=== PATIENT | male | born 2005 | race Caucasian/White ===

== ENCOUNTER 2025-04-18 14:56 | Outpatient (AMB) | payer BC, SELFPAY ==
--- NOTE | 2025-04-18 15:02 | MHC.PC.OV ---
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 She reports history of syncope beginning in her senior year of high school 2 years ago when she passed out at a restaurant after a meal and sustained a concussion. Second episode occurred the same year while standing for a prolonged period. She reports her most recent syncopal episode this year, when she woke up with a severe stomach ache went to the bathroom, became nauseous and then lost consciousness while on toilet. Denies straining during the bowel movement. She reports experiencing presyncopal symptoms including lightheadedness, feeling hot, sweaty, palpitation and feeling jittery. Triggers include prolonged standing, stress. Reports that her syncopal episodes lasted about 1-2 minutes, sometimes accompanied by tremors and eye rolling. Patient reports that following the initial episode 2 years ago she was evaluated by product safety consultant had a Holter monitor that was reportedly normal. She reports she has always played soccer and that she was cleared to resume activity. She reports that she had an echocardiogram done but unsure of the results, and plan neurology follow up that did not occur. Denies surgical history. Has a contraceptive implant in her left arm which was placed 2 years ago. Family history significant for father with high blood pressure and hemochromatosis, and mother with a thyroid disease. No family history of heart disease or seizures. Social history: Lives with her parents. Reports occasional social use of marijuana and nicotine via E cigarettes about once a week. Drinks alcohol occasionally. [facility] Surgical History (Updated 04/18/25 @ 15:07 by Jacklyn Sotelo CMA) No pertinent past surgical history Family History (Updated 04/18/25 @ 15:09 by Jacklyn Sotelo CMA) Father Squamous cell carcinoma of tonsil Hemochromatosis Paternal Grandfather Lung cancer Mother Depression Social History (Updated 04/18/25 @ 15:07 by Jacklyn Sotelo CMA) Household Members: Family Housing: House Alcohol intake: never Patient Tobacco Use Status: Never used Tobacco e-Cigarette/Vaping Use: Currently Using Substance Use Type: Marijuana service: No Current occupational status: employed and student Current occupation: [employer] Cognitive needs: No Hearing needs: No Vision needs: Yes Questionnaire PHQ-9 Over the last 2 weeks, how often have you been bothered by any of the following problems? 1. Little interest or pleasure in doing things: several days 2. Feeling down, depressed, or hopeless: not at all 3. Trouble falling or staying asleep, or sleeping too much: more than half the days 4. Feeling tired or having little energy: several days 5. Poor appetite or overeating: several days 6. Feeling bad about yourself - or that you are a failure or have let yourself or your family down: several days 7. Trouble concentrating on things, such as reading the newspaper or watching television: several days 8. Moving or speaking so slowly that other people could have noticed. Or the opposite - being so fidgety or restless that you have been moving around a lot more than usual: not at all 9. Thoughts that you would be better off or of hurting yourself in some way: not at all Total score: 7 Depression Screening Interpretation: Positive Depression Screening Done: Yes 84436 - PHQ-9 Billing: Yes Source: Developed by Drs. Brendon Pringle, Flower Ba, Steven Stern and colleagues, with an educational chacorta from [employer]. Thrive Questionnaire Date Thrive assessed: 04/18/25 I am a: Patient What is your living situation today?: I have a steady place to live Within the past 12 months, did the food you bought not last and you didn't have the money to get more?: Sometimes True Within the past 12 months, did you worry whether your food would run out before you got money to buy more?: Sometimes True Do you have trouble paying for medicines?: No Do you have trouble getting transportation to medical appointments?: No Do you have trouble paying your heating and electricity bill?: No Do you have trouble taking care of your child, family member or friend?: No Do you have trouble with day-to-day activities such as bathing, preparing meals, shopping, managing finances, etc.?: No Are you currently unemployed and looking for a job?: No Are you interested in more education?: No Please select the resources that you would like help with: None Currently or been in a relationship where the following occur: I choose not to answer THRIVE Score: 2 AUDIT C Alcohol Use Questionnaire (AUDIT-C) 1. How often do you have a drink containing alcohol?: Monthly or less 2. How many drinks containing alcohol do you have on a typical day when you are drinking?: 3 or 4 3. How often do you have six or more drinks on one occasion?: Never Total Score: 2 MANN-7 AMB Questionnaire MANN-7 Date MANN - 7 assessed: 04/18/25 Feeling nervous, anxious, or on edge: 2 = More than half the days Not being able to stop or control worryin = Several days Worrying too much about different things: 1 = Several days Trouble relaxin = Not at all Being so restless that it is hard to sit still: 0 = Not at all Becoming easily annoyed or irritable: 1 = Several days Feeling afraid as if something awful might happen: 0 = Not at all Total MANN-7 score (0-4 normal; 5-9 mild; 10-14 moderate; 15-21 severe): 5 Source: Developed by Drs. Brendon Pringle, Flower Ba, Steven Stern and colleagues, with an educational chacorta from [employer]. MANN-7 Assessment Billing MANN-7 Assessment Tool: MANN-7 Assessment 47228 Physical exam (Primary Care) Vital Signs: Last Vital Signs Temp 97.3 F 04/18/25 15:03 Pulse 57 04/18/25 15:03 BP 122/86 04/18/25 15:03 Pulse Ox 96 04/18/25 15:03 Oxygen Delivery Method Room Air 04/18/25 15:03 General: Well-appearing, alert, oriented ?3, in no acute distress. Cardiovascular: RRR, S1-S2 appreciated, no murmurs, rubs or gallops. Respiratory: Lungs clear to auscultation bilaterally, no wheezes, rales or rhonchi. Abdomen: Soft, nontender, nondistended. Normoactive bowel sounds. BMI result Body Mass Index 24.2 Tobacco/Smoking Status: Tobacco use Status Tobacco use date assessed 04/18/25 04/18/25 15:10 Patient Tobacco Use Status Never used Tobacco 04/18/25 15:10 e-Cigarette/Vaping Use Currently Using 04/18/25 15:10 PHQ-9: PHQ-9 Score PHQ-9: Total score 7 04/18/25 15:16 Depression Screening Interpretation: Positive Thrive Assessment: Date of Thrive Assessment Date Thrive assessed 04/18/25 04/18/25 15:10 Currently or been in a relationship where the following occur: I choose not to answer Coding Level of Care Code New Pt Level 4 (07379) Diagnoses Establishing care with new doctor, encounter for Z76.89 Syncope, unspecified syncope type R55 Syncope type: unspecified Family history of hemochromatosis Z83.49 Additional Codes MANN-7 Assessment Billing - MANN-7 Assessment Tool: MANN-7 Assessment 55559 ([id number]) PHQ-9 - 84495 - PHQ-9 Billing: Yes ([id number]) Assessment & Plan Assessment & Plan (1) Establishing care with new doctor, encounter for: Code(s): Z76.89 - Persons encountering health services in other specified circumstances Plan: Patient is a 19-year-old female presenting to establish care (2) Syncope: Code(s): R55 - Syncope and collapse Category: Medical Qualifiers: Syncope type: unspecified Qualified Code(s): R55 - Syncope and collapse Plan: Patient presenting with a history of recurrent syncopal episodes with prodromal symptoms, could be secondary to vasovagal syncope, cardiac etiology or neurological etiology. However, given associated palpitations, questionable history of tremors during episode and recurrence after 2 year interval, and underlying cardiac arrhythmia or neurologic cause must be ruled. Plan is to obtain EKG, baseline blood work, 48 hour Holter monitor and an echocardiogram to further evaluate for cardiac arrhythmias structural heart disease. Referrals for both Cardiology neurology placed for further evaluation. Patient advised on conservative management such as staying hydrated, avoiding triggers like for longstanding, extreme heat and stress. (3) Family history of hemochromatosis: Code(s): Z83.49 - Family history of other endocrine, nutritional and metabolic diseases Category: Medical Plan: Obtain CBC Orders: Orders Comprehensive Met. Panel Today Z00.00 - Encounter for general adult medical examination without abnormal findings Lipid Panel with Reflex Today Z00.00 - Encounter for general adult medical examination without abnormal findings TSH reflex Free T4 Today Z83.49 - Family history of other endocrine, nutritional and metabolic diseases ECG 12 lead EKG Today R55 - Syncope and collapse ECG holter monitor 48 hour Today R00.2 - Palpitations, R55 - Syncope and collapse CA echo transthoracic complete Today R55 - Syncope and collapse Complete Blood Count Auto Diff Today Z00.00 - Encounter for general adult medical examination without abnormal findings Referrals Cardiology Referral R55 - Syncope and collapse Neurology Referral R55 - Syncope and collapse
[2025-04-18 15:03] VITALS: BP 122/86; PULSE 57; TEMP 36.3; O2SAT 96; BMI 24.2
--- OUTSIDE RECORDS SUMMARY | 2025-04-19 12:59 | XMS_ITS | Encounter Summary ---
Author Organization [facility] Address [address] [place] [address] Phone Care Team Providers Care Security Operations Engineer Name Role Phone Sweetie Main MD Primary Care Provider [phone] Encounter Details Date Type Department Care Team (Late st Contact Info) Description 08/21/2016 Documentation [facility] [place] Family Medicine [address] [place] [address] Family Medicine, Physician [address] [place], [place] [id number] Social History Tobacco Use Types Packs/Day Years Used Date Smoking Tobacco: Never Assessed Comments Unknown Sex and Gender Information Value Date Recorded Sex Assigned at Not on file Legal Sex Female 5:12 PM EDT Gender Identity Female 05/29/2021 5:47 PM EST Sexual Orientation Not on file documented as of this encounter Plan of Treatment Not on file documented as of this encounter Visit Diagnoses Not on filedocumented in this encounter Care Teams Security Operations Engineer Relationship Specialty Start Date End Date Sweetie Main MD [address] [place] [id number] PCP - General 01/09/17 06/01/23 documented as of this encounter
--- OUTSIDE RECORDS SUMMARY | 2025-04-19 12:59 | XMS_ITS | Encounter Summary ---
Author Organization [facility] Address [address] [place] [address] Phone Care Team Providers Care Health Program Analyst Name Role Phone Sweetie Main MD Primary Care Provider Encounter Details Date Type Department Care Team (Late st Contact Info) Description 03/16/[address] [facility] [place] Family Medicine [address] [place] [address] Family Medicine, Physician [address] [place], [place] [address] Social History Tobacco Use Types Packs/Day Years [...] on filedocumented in this encounter Care Teams Health Program Analyst Relationship Specialty Start Date End Date Sweetie Main MD [address] [place] [id number] PCP - General 01/09/17 06/01/23 documented as of this encounter
--- OUTSIDE RECORDS SUMMARY | 2025-04-19 12:59 | XMS_ITS | Clinical Summary ---
Author Organization [facility] Address [address] [place] [address] Phone Care Team Providers Care Supervisor Model Making Name Role Phone Unavailable Primary Care Provider Unavailabl e Allergies Active Allergy Reactions Criticality Noted Date Comments Sulfamethoxazole Rash Low Trimethoprim Rash Low Medications Etonogestrel (NEXPLANON SC) Inject under the skin. Active triamcinolone 0.1 % creamIndication s:Flexural atopic dermatitis,Doctor Of Nurse Anesthesia yvon dermatitis Mix 80 gram tube in 1 lb jar of Cerave cream; apply liberally 2x/day to dry back and arms 80 g 1 2 Active Additional Information Patient not taking.Reported on 04/16/2022 Active Problems Problem Noted Date Diagnosed Date Varicella without complication 08/10/2019 Overview (08/10/2019): Hx of disease Jun 2005 Kyphosis 08/06/2018 Overview (08/06/2018): Had been seen at [facility] - was referred to PT and went a couple of times. Was recommended to work on her core. Resolved Problems Problem Noted Date Diagnosed Date Resolved Date Refused influenza vaccine 02/22/2020 Immunizations Immunization Administration Dates Next Due DTaP / Hep B / IPV 02/05/2005,2004, 005 DTaP 5 10/02/2008,02/16/2006 HPV Vaccine 9 Valent 08/20/2016,02/20/2016 Hep A, ped/adol 01/27/2014,11/19/2010 Hep B, ped/adol 2004 Hib (HbOC) 02/05/2005,2004,2004 Hib (PRP-T) 11/05/2005 IPV 10/02/2008 Influenza Split 03/18/2010 Influenza, injectable, quadr ivalent, preservative free 03/13/2020 Influenza, injectable, trivalent 009,03/31/2007,04/22/2006,04/30,03/19/2005 MMR 10/02/2008,08/04/2005 Meningococcal B Trumenba 04/16/2022 Meningococcal Conj (Menactra) MCV4P 11/28/2020,0 02/20/2016 Pneumococcal Conjugate 11/05/2005,2004,2004,10/07 Tdap 02/20/2016 Family History Medical History Relation Name Comments Hyperlipidemia Maternal Grandfather Hyperlipidemia Maternal Grandmother Hyperthyroidism Maternal Grandmother Asthma Paternal Grandmother Diabetes Paternal Grandmother Migraines Paternal Grandmother Relation Name Status Comments Brother 1 Stu Alive Brother: Asthma , Alive and well Brother 2 Homer Alive Father Jeremiah Alive Father: Hemochr omatosis Maternal Grandfather Maternal Grandmother Mother Ariane Alive Mother: Alive a nd well Other No family histo ry of CVA (Stroke), No family history of Sudden /[place] under age 55, No family history of Heart disease, No family history of Dental caries, No family history of Thrombophilia Paternal Grandfather Paternal Grandmother Social History Tobacco Use Types Packs/Day Years Used Date Smoking Tobacco: Never Smokeless Tobacco: Never Tobacco Cessation:Counseling Given: Yes Alcohol Use Standard Drinks/Week Comments Never 0 (1 standard drink = 0.6 oz pur e alcohol) Hunger/Food Answer Date Recorded In the last 12 months, did y ou or your family ever eat less than you felt you should because there wasn't enough money for food? No 09/27/2020 Stable Housing Answer Date Recorded Are you worried that in the next 2 months you may not have stable housing? No 09/27/2020 Transportation Concerns Answer Date Rec orded In the last 12 months, have you or your family ever had to go without healthcare because you didn't have a way to get there? No 09/27/2020 Hazards in Home Answer Date Recorded Think about the place you li ve. Do you have problems with any of the following? Pests (mice or roaches), mold, no/not working smoke detectors, water leaks, no window guards. No 2020 Financing Utilities Answer Date Recorde d In the last 12 months, has t he electric, gas, oil, or water company threatened to shut off your services in your home? No 09/27/2020 Safety at Home Answer Date Recorded Are you or your family worried about feeling saf e in your home? No 09/27/2020 Outside Support Answer Date Recorded Do you feel that you need mo re support from other people or programs to help you care for yourself or your family? No 09/27/2020 Understanding Health Concerns Answer Da te Recorded Do you need help understandi ng your or your child's healthcare needs (diagnosis, medications, plan, etc.)? No 09/27/2020 Financing Health Concerns Answer Date R ecorded In the last 12 months, was t here a time when your child needed to see a doctor or get medications or supplies but could not because of cost? No 09/27/2020 Missing School or Work Answer Date Alejandro rded Did you or your child miss s chool or work because of a health problem that could have been avoided? No 09/27/2020 Comments No Sex and Gender Information Value Date Recorded Sex Assigned at Not on file Legal Sex Female 5:12 PM EDT Gender Identity Female 05/29/2021 5:47 PM EST Sexual Orientation Not on file Last Filed Vital Signs Vital Sign Reading Time Taken Comments Blood Pressure 108/68 09/16/2022 4:05 PM EDT Pulse 48 09/16/2022 4:05 PM EDT Temperature 36.8 C (98.2 F) 09/16/2022 4:05 PM EDT Respiratory Rate - - Oxygen Saturation - - Inhaled Oxygen Concentration - - Weight 57 kg (125 lb 9.6 oz) 09/16/2022 4:05 PM EDT Height 163.2 cm (5' 4.25 ) 11/28/2020 4:22 PM ED T Body Mass Index - - Plan of Treatment Health Maintenance Due Date Last Done Comments Men B Vaccine (2 of 2 - Trum enba SCDM 2-dose series) 10/14/2022 04/16/2022 Influenza Vaccines (#1) 2024 03/13/20 20, 03/18/2010, 03/14/2009, Additional history exists COVID-19 Vaccine (3 - 2024-2 6 season) 2025 10/22/2020, 09/30/2020 DTaP,Tdap,and Td Vaccines (7 - Td or Tdap) 02/19/2026 02/20/2016, 10/02/2008, 02/16/2006, Additional history exists Hepatitis B Vaccines Completed 02/05/2005, 2004, 2004, Additional history exists HIB Vaccines Completed 11/05/2005, 11/2004, 2004, Additional history exists Pneumococcal Vaccine Completed 11/05/2005, 02/05/2005, 2004, Additional history exists IPV Vaccines Completed 10/02/2008, 11/2004, 2004, Additional history exists MMR Vaccines Completed 10/02/2008, 08/04/2005 Hepatitis A Vaccines Completed 01/27/2014, 11/20/19 11 HPV Vaccines Completed 08/20/2016, 02/20/2016 Meningococcal Vaccine Completed 11/28/2020, 016 Procedures * Due to [place] law, this organization might not be sharing sensitive test results. Procedure Name Priority Date/Time Associated Diagnosis Comments CHLAMYDIA AND GONORRHEA, AMPLIFIED Routine 09/27/2020 3:30 PM EDT Screening examination for bacterial and spirochetal disease from Last 3 Months or Most Recently Relevant to Health Maintenance Results * Due to [place] law, this organization might not be sharing sensitive test results. * Chlamydia and Gonorrhoea, Amplified (09/27/2020 3:30 PM EDT) Chlamydia Trachomatis, DNA Probe NEGATIVE (NEG) [facility] Comment: No Chlamydia Trachomatis RNA detected in this patient's sample (REFERENCE RANGE/NORMAL VALUE: NOT DETECTED) Note: This test uses automotive title clerk- mediated amplification method to detect rRNA from C. Trachomatis URINE GC AMP PROBE NEGATIVE (NEG) [facility] Comment: No Neisseria Gonorrhoeae RNA detected in this patient's sample (REFERENCE RANGE/NORMAL VALUE: NOT DETECTED) NOTE: This test uses automotive title clerk-mediated amplification method to detect rRNA from N.Gonorrhoeae. A negative result does not preclude infection. In the case of a negative urine result, testing of an endocervical(female) or urethral (male) specimen is recommended if there is high clinical suspicion of infection. Due to very high sensitivity of Nucleic Acid Amplification Test, false positive results may occur. Therefore, specimen handling is extremely important. In patients in whom the disease is unlikely, additional sample for testing should be considered after an initial positive result. The performance characteristics of this test have not been evaluated in children. The Aptima Combo2 assay is not intended for the evaluation of suspected sexual abuse or for other medico-legal indications. The ordering provider should assess if the patient had consensual sex without risk of sexual abuse. Consult the [facility] if needed. Contact phone number . Therapeutic failure or success cannot be determined with the Aptima Combo2 assay since nucleic acid may persist following appropriate antimicrobial therapy. The Centers for Disease Control and Prevention (CDC) recommends confirmatory retesting using culture or a different nucleic acid amplification test when positive results occur, if indicated. Testing performed or reported by [facility], a Service of [facility], [facility] [place] [address] Pancho Abad MD, Business Management Associate Urine 09/27/2020 3:30 PM EDT 09/27/2020 8:49 PM EDT us Sweetie Main MD LAB MICROBIOLOGY - GENERAL ORDERABLES Final Result [facility] from Last 3 Months or Most Recently Relevant to Health Maintenance
--- OUTSIDE RECORDS SUMMARY | 2025-04-19 12:59 | XMS_ITS | Encounter Summary ---
Author Organization [facility] Address [address] [place] [address] Phone Care Team Providers Care Special Officer Automat Name Role Phone Sweetie Main MD Primary Care Provider Encounter Details Date Type Department Care Team (Late st Contact Info) Description 01/23/2015 Documentation [facility] [place] Family Medicine [address] [place] [address] Family Medicine, Physician [address] [place], [place] [phone] Social History Tobacco Use Types Packs/Day Years [...] on filedocumented in this encounter Care Teams Special Officer Automat Relationship Specialty Start Date End Date Sweetie Main MD [address] [place] [phone] PCP - General 01/09/17 06/01/23 documented as of this encounter
--- OUTSIDE RECORDS SUMMARY | 2025-04-19 12:59 | XMS_ITS | Encounter Summary ---
Author Organization [facility] Address [address] [place] [address] Phone Care Team Providers Care Tappet Adjuster Name Role Phone Sweetie Main MD Primary Care Provider Encounter Details Date Type Department Care Team (Late st Contact Info) Description 11/26/2011 Documentation [facility] [place] Family Medicine [address] [place] [address] Family Medicine, Physician [address] [place], [place] [address] Social History Tobacco Use Types Packs/Day Years [...] on filedocumented in this encounter Care Teams Tappet Adjuster Relationship Specialty Start Date End Date Sweetie Main MD [address] [place] [id number] PCP - General 01/09/17 06/01/23 documented as of this encounter
--- OUTSIDE RECORDS SUMMARY | 2025-04-19 12:59 | XMS_ITS | Encounter Summary ---
Author Organization [facility] Address [address] [place] [address] Phone Care Team Providers Care Metalsmith Apprentice Name Role Phone Sweetie Main MD Primary Care Provider Encounter Details Date Type Department Care Team (Late st Contact Info) Description 01/31/2014 Documentation [facility] [place] Family Medicine [address] [place] [address] Family Medicine, Physician [address] [place], [place] [address] Social History Tobacco Use Types Packs/Day Years [...] on filedocumented in this encounter Care Teams Metalsmith Apprentice Relationship Specialty Start Date End Date Sweetie Main MD [address] [place] [phone] PCP - General 01/09/17 06/01/23 documented as of this encounter
--- OUTSIDE RECORDS SUMMARY | 2025-04-19 12:59 | XMS_ITS | Encounter Summary ---
Author Organization [facility] Address [address] [place] [address] Phone Care Team Providers Care Flour Inspector Name Role Phone Sweetie Main MD Primary Care Provider Encounter Details Date Type Department Care Team (Late st Contact Info) Description 02/21/2016 [place]ation [facility] [place] [address] [place] [address] Family Medicine, Physician [address] [place], [place] [id number] Social History Tobacco Use Types Packs/Day Years [...] on filedocumented in this encounter Care Teams Flour Inspector Relationship Specialty Start Date End Date Sweetie Main MD [address] [place] [id number] PCP - General 01/09/17 06/01/23 documented as of this encounter
--- OUTSIDE RECORDS SUMMARY | 2025-04-19 12:59 | XMS_ITS | Encounter Summary ---
Author Organization [facility] Address [address] [place] [address] Phone Care Team Providers Care Mink Rancher Name Role Phone Sweetie Main MD Primary Care Provider [phone] Encounter Details Date Type Department Care Team (Late st Contact Info) Description 01/26/2013 Documentation [facility] [place] [address] [place] [address] Family Medicine, Physician [address] [place], [place] [address] Social History Tobacco Use Types Packs/Day Years [...] on filedocumented in this encounter Care Teams Mink Rancher Relationship Specialty Start Date End Date Sweetie Main MD [address] [place] [id number] PCP - General 01/09/17 06/01/23 documented as of this encounter
--- OUTSIDE RECORDS SUMMARY | 2025-04-19 12:59 | XMS_ITS | Encounter Summary ---
Author Organization [facility] Address [address] [place] [phone] Phone Care Team Providers Care Diamond Cleaner Name Role Phone Sweetie Main MD Primary Care Provider [phone] Encounter Details Date Type Department Care Team (Late st Contact Info) Description 01/15/2017 Conversion Encounter [facility] [address] [place] [address] Social History Tobacco Use Types Packs/Day Years [...] on filedocumented in this encounter Care Teams Diamond Cleaner Relationship Specialty Start Date End Date Sweetie Main MD [address] [place] [address] PCP - General 01/09/17 06/01/23 documented as of this encounter
--- OUTSIDE RECORDS SUMMARY | 2025-04-19 12:59 | XMS_ITS | Encounter Summary ---
Author Organization [facility] Address [address] [place] [address] Phone Care Team Providers Care Prize Fighter Name Role Phone Sweetie Main MD Primary Care Provider Encounter Details Date Type Department Care Team (Late st Contact Info) Description 02/21/2016 Documentation [facility] [place] [address] [place] [address] Family Medicine, Physician [address] [place], [place] [id number] Social History Tobacco Use Types Packs/Day Years [...] on filedocumented in this encounter Care Teams Prize Fighter Relationship Specialty Start Date End Date Sweetie Main MD [address] [place] [phone] PCP - General 01/09/17 06/01/23 documented as of this encounter
--- OUTSIDE RECORDS SUMMARY | 2025-04-19 12:59 | XMS_ITS | Encounter Summary ---
Author Organization [facility] Address [address] [place] [address] Phone Care Team Providers Care Books Binder Name Role Phone Sweetie Main MD Primary Care Provider Encounter Details Date Type Department Care Team (Late st Contact Info) Description 11/26/2011 Documentation [facility] [place] [address] [place] [address] Family Medicine, Physician [address] [place], [place] [id number] Social History Tobacco Use Types Packs/Day Years [...] on filedocumented in this encounter Care Teams Books Binder Relationship Specialty Start Date End Date Sweetie Main MD [address] [place] [id number] PCP - General 01/09/17 06/01/23 documented as of this encounter
--- OUTSIDE RECORDS SUMMARY | 2025-04-19 12:59 | XMS_ITS | Encounter Summary ---
Author Organization [facility] Address [address] [place] [address] Phone Care Team Providers Care Core Winder Machine Operator Name Role Phone Sweetie Main MD Primary Care Provider Encounter Details Date Type Department Care Team (Late st Contact Info) Description 01/31/2014 [place] [facility] [place] [address] [place] [address] Family Medicine, Physician [address] [place], [place] [address] Social History Tobacco Use Types Packs/Day Years [...] on filedocumented in this encounter Care Teams Core Winder Machine Operator Relationship Specialty Start Date End Date Sweetie Main MD [address] [place] [phone] PCP - General 01/09/17 06/01/23 documented as of this encounter
== END 2025-04-18 15:42 | disposition home or self-care (01) ==
LOC: HO.HMCH 14:57
PROVIDERS: Visit Provider Student in an Organized Health Care Education/Training Program
DX: Z76.89 Persons encountering health services in other specified circumstances (principal); R55 Syncope and collapse; Z83.49 Family history of other endocrine, nutritional and metabolic diseases

== ENCOUNTER → 2025-04-18 14:56 | Outpatient (BNVA) | payer BC, SELFPAY | PROVIDERS: Visit Provider Student in an Organized Health Care Education/Training Program | DX: Z76.89 Persons encountering health services in other specified circumstances (principal); R55 Syncope and collapse; Z83.49 Family history of other endocrine, nutritional and metabolic diseases; Z13.31 Encounter for screening for depression; Z13.39 Encounter for screening examination for other mental health and behavioral disorders | CPT/HCPCS: 96127 ==